=== PATIENT | female | born 1965 | race Caucasian/White ===

== ENCOUNTER 2017-03-10 05:08 | Emergency (ER) | payer OTHER ==
[~2017-03-10] VITALS: Ht 160 cm; Wt 65.8 kg
[2017-03-10 05:23] VITALS: BP 128/74
[2017-03-10] MEDS ORDERED: CYTOMEL25 MC1 PO (05:30)
[2017-03-10] MEDS ORDERED: SYNTHROID50 MCG PO (05:30)
[2017-03-10] MEDS ORDERED: ACULAR5 ML OPH (05:40)
[2017-03-10] MEDS ORDERED: AZASITE2.5 ML OD (05:40)
--- NOTE | 2017-03-10 05:40 | ED EYE COMPLAINT ---
History of Present Illness General Chief Complaint: Eye Problems Stated Complaint: RIGHT EYE PAIN Source: patient, old records Exam Limitations: no limitations Vital Signs & Intake/Output Vital Signs & Intake/Output Vital Signs Date Time Temp Pulse Resp B/P B/P Pulse O2 O2 Flow FiO2 Mean Ox Delivery Rate 03/10 0523 97.3 77 18 128/74 98 Room Air Allergies Coded Allergies: No Known Allergies (03/10/17) Reconcile Medications Azithromycin (Azasite) 1 % DROPS 1 GTT OD BID blepharoconjunctivitis Ketorolac Tromethamine (Acular) 0.5 % DROPS 1 GTT OPH 4 TIMES/DAY PRN pain Levothyroxine Sodium (Synthroid) 50 MCG TABLET 50 MCG PO D THYROID (Reported) Liothyronine Sodium (Cytomel) 25 MCG TABLET 5 MG PO D THYROID (Reported) Triage Note: STARTED WITH REDNESS IN LT EYE YESTERDAY, SAW PMD USING EYE DROPS AND COOL COMPRESSES BUT THIS AM IT IS PAINFUL Triage Nurses Notes Reviewed? yes Onset: 1 day Duration: day(s):, constant, continues in ED, getting worse Timing: recent history Severity: mild, moderate No Modifying Factors: none Right Eye Associated Symptoms: burning, itching, pain LMP (ages 10-50): post menopausal : No Patient currently breastfeeds: No HPI: 1 day prior to admission patient pulled eyelash developing right eye tearing and redness eyelid discharge. She denies fever chills nausea vomiting diarrhea abdominal pain chest pain shortness breath headache dysuria bleeding change in vision. Past History Travel History Traveled to [place] past 21 day No Medical History Any Pertinent Medical History? see below for history Neurological: NONE EENT: NONE Cardiovascular: NONE Respiratory: NONE Gastrointestinal: NONE Hepatic: NONE Renal: NONE Musculoskeletal: NONE Psychiatric: NONE Endocrine: THYROID Surgical History Surgical History: non-contributory Psychosocial History What is your primary language Frisian Tobacco Use: Never used Family History Hx Contributory? No Review of Systems Review of Systems Constitutional: Reports: no symptoms. Eyes: Reports: see HPI, drainage, pain, glasses. Ear: Reports: no symptoms. Nose: Reports: no symptoms. Mouth: Reports: no symptoms. Throat: Reports: no symptoms. Respiratory: Reports: no symptoms. Cardiovascular: Reports: no symptoms. GI: Reports: no symptoms. Genitourinary: Reports: no symptoms. Musculoskeletal: Reports: no symptoms. Skin: Reports: no symptoms. Neurological/Psychological: Reports: no symptoms. Hematologic/Endocrine: Reports: no symptoms. Immunologic/Allergic: Reports: no symptoms. All Other Systems: Reviewed and Negative Physical Exam General Appearance: well developed/nourished, mild distress General Inspection: normal inspection Eyelid: normal inspection Conjunctiva/Sclera: normal inspection Cornea: normal inspection EOM: intact Pupil: normal accommodation, normal pupil, PERRL Anterior Chamber: normal inspection General Inspection: normal inspection Eyelid: edema (mild), discharge on eyelashes Conjunctiva/Sclera: exudate, injected Cornea: normal inspection EOM: intact Pupil: normal accommodation, normal pupil, PERRL Anterior Chamber: normal inspection Physical Exam Head: atraumatic, normal appearance Ears: Bilateral: canal normal, Tympanic normal. Nose: normal inspection Mouth/Throat: normal mouth inspection Neck: normal inspection, supple Cardiovascular/Respiratory: normal breath sounds, regular rate/rhythm Neurologic/Psych: awake, alert, oriented x 3, normal mood/affect Skin: intact, normal color, warm/dry Progress Differential Diagnosis: corneal abrasion, corneal foreign body, conjunctivitis Plan of Care: azithromycin ketorolac Departure Departure Time of Disposition: 534 Disposition: HOME OR SELF CARE Condition: Stable Clinical Impression Primary Impression: Blepharoconjunctivitis of right eye Qualifiers: Blepharoconjunctivitis type: unspecified Qualified Code: H10.501 - Unspecified blepharoconjunctivitis, right eye Referrals: TERESE NIEVES MD (PCP/Family) Additional Instructions: Follow up with your eye doctor. Departure Forms: Customer Survey General Discharge Information Prescriptions: Current Visit Scripts Azithromycin (Azasite) 1 GTT OD BID #1 BOT Ketorolac Tromethamine (Acular) 1 GTT OPH 4 TIMES/DAY PRN pain #5 ML
== END 2017-03-10 05:45 ==
LOC: ERH 05:08
DX: H10.501 Unspecified blepharoconjunctivitis, right eye (principal)